=== PATIENT | male | born 1965 | race Caucasian/White ===

== ENCOUNTER 2016-08-03 09:39 | Emergency (ER) | payer OTHER ==
[2016-08-03 10:17] VITALS: BP 142/106; PULSE 83; RESP 16; TEMP 98.8; O2SAT 97
--- NOTE | 2016-08-03 11:03 | UCPHY ---
H & P Time Seen by Provider: 08/03/16 10:42 Patient Type: New HPI/ROS: CHIEF COMPLAINT: Cough HISTORY OF PRESENT ILLNESS: 50-year-old male states he had a flu last week with fever, body aches, headache, and sore throat. Coworkers were ill with similar symptoms. Those symptoms have resolved, however the patient is now reporting a cough productive of greenish sputum. No chest pain. Cough has been keeping him up at night. No further fever. No shortness of breath. Patient states the cough is keeping him awake at night. No fever, chills, chest pain, shortness of breath, palpitations, vomiting, diarrhea, urinary complaints, headache, lightheadedness. REVIEW OF SYSTEMS: Aside from elements discussed in the HPI, a comprehensive 10-point review of systems was reviewed and is negative. PAST MEDICAL HISTORY: Denies. SOCIAL HISTORY: , nonsmoker. VITAL SIGNS: see nurse's notes. GENERAL: Well-developed, well-nourished, in no acute distress. HEENT: Atraumatic Eyes: PERRL, EOMI, no conjunctival injection. Ears: TM clear bilaterally. Nose: No discharge. Mouth: moist mucous membranes. Pharynx: no erythema, no exudates, no swelling, no abscess. Uvula is midline. NECK: Supple, no adenopathy, no meningismus, no tenderness. Negative Kernig's and Brudzinski's. LUNGS: Coarse breath sounds, wheezy cough. CARDIAC: Regular rate and rhythm, no rubs, murmurs or gallops. ABDOMEN: Soft, nontender, bowel sounds normal. EXTREMITIES: Normal, no edema, FROM. NEURO: Alert and oriented, grossly nonfocal. SKIN: Warm and dry, no rash. PSYCHIATRIC: Normal mentation, no agitation. Smoking Status: Never smoked Constitutional: Initial Vital Signs Temperature (C) 37.1 C 08/03/16 10:12 Heart Rate 83 08/03/16 10:12 Respiratory Rate 16 08/03/16 10:12 Blood Pressure 142/106 H 08/03/16 10:12 O2 Sat (%) 97 08/03/16 10:12 O2 Delivery Mode Room Air Allergies/Adverse Reactions: No Known Allergies Allergy (Unverified 08/03/16 11:03) Home Medications: Medication Instructions Recorded AZITHROMYCIN [Z-PACK] 250 - 500 mg PO DAILY #6 tab 08/03/16 Albuterol [Proventil Inhaler HFA 1 - 2 puffs IH Q4H #1 mdi 08/03/16 (*)] Benzonatate [Tessalon Pearles (RX)] 100 mg PO TID PRN #20 cap 08/03/16 NK [No Known Home Meds] 08/03/16 Medical Decision Making ED Course/Re-evaluation: I suspect post influenza bronchospasm and chronic cough along with potential bronchitis. Patient looks well. Not hypoxic. Albuterol meter dose inhaler provided as well as azithromycin prescription, Tessalon Perles. Differential Diagnosis: Differential diagnosis for the patient's cough was considered including but not limited to viral versus bacterial bronchitis, asthma, COPD, pulmonary emboli, upper respiratory infection, lower respiratory infection, and bronchospasm. Departure - Departure Disposition: Home, Routine, Self-Care Clinical Impression: Bronchitis Condition: Good Instructions: Acute Bronchitis (ED), How to Use a Nebulizer (ED), Bronchospasm (ED) Additional Instructions: Please use the albuterol meter dose inhaler 4 times a day to help with your cough. Take antibiotics as directed. Please take Tessalon Perles as needed to help control your cough. Referrals: CANDI WANG [Primary Care Provider] - As per Instructions Prescriptions: Albuterol [Proventil Inhaler HFA (*)] 1 - 2 puffs IH Q4H #1 mdi AZITHROMYCIN [Z-PACK] 250 - 500 mg PO DAILY #6 tab Benzonatate [Tessalon Pearles (RX)] 100 mg PO TID PRN #20 cap PRN Reason: cough - PQRS PQRS Measurement: Not applicable
== END 2016-08-03 11:16 | disposition home or self-care (01) ==
LOC: CED 09:39
DX: J40 Bronchitis, not specified as acute or chronic (principal)
CPT/HCPCS: 99203-PO; G0463-PO